=== PATIENT | male | born 1940 | race Caucasian/White ===

== ENCOUNTER 2022-02-26 21:43 | Emergency (ER) | payer MEDICARE ==
[~2022-02-26] VITALS: Ht 172.7 cm; Wt 70.9 kg
[2022-02-26] MEDS ORDERED: HYDROcodone/acetaminophen 5mg/325mg tablet PO ONE (23:40)
[2022-02-26] MEDS ORDERED: HYDR-3965 PO (23:57)
[2022-02-27 00:09] VITALS: BP 110/73
== END 2022-02-27 00:13 | disposition home or self-care (01) ==
LOC: ER 21:45
DX: S42.031A Displaced fracture of lateral end of right clavicle, initial encounter for closed fracture (principal); I10 Essential (primary) hypertension; E11.9 Type 2 diabetes mellitus without complications; Z91.013 Allergy to seafood; Z79.899 Other long term (current) drug therapy; W18.09XA Striking against other object with subsequent fall, initial encounter; Z91.81 History of falling; Y93.89 Activity, other specified; Y92.89 Other specified places as the place of occurrence of the external cause; Y99.8 Other external cause status
CPT/HCPCS: 73030; 99284

== ENCOUNTER 2025-08-24 12:11 | Day surgery (SDC) | payer MEDICARE ==
[2025-08-20 11:33] LABS: MEAN PLATELET VOLUME 7.1 FL (7.4-10.4); RED CELL DISTRIBUTION WIDTH 15.0 % (11.5-14.5)
[2025-08-20 11:42] LABS: APTT 28 SECONDS (22-32); INR 1.1 INR
[2025-08-20 11:43] LABS: CHOL/HDL RATIO 2.2 (0.00-4.99); CREATININE 1.14 MG/DL (0.60-1.10); LDL CHOLESTEROL 53 MG/DL (50-100); TOTAL CARBON DIOXIDE 28.5 MMOL/L (24-32); eGFR 61 ML/MIN
[~2025-08-24] VITALS: Ht 172.7 cm; Wt 77.4 kg
[2025-08-24] VITALS (10 sets, daily range): BP systolic 101–145; BP diastolic 58–87; PULSE 71–89; RESP 15–19; TEMP 98.4; O2SAT 93–99
--- NOTE | 2025-08-24 12:52 | ELECTROCARDIOGRAPH REPORT ---
[facility] Test Date: 2025-08-24 Test Time: 12:49:03 Pat Name: ORLIN REYES Department: [facility] Patient ID: [id number] Room: Gender: M Pastry Cook: : 1940 Requested By: MERT SIMS Order Number: [id number] Reading MD: Dr. Dainel Sims Measurements Intervals [place] Rate: 85 P: 0 ME: 0 QRS: 105 QRSD: 136 T: -8 QT: 398 QTc: 474 Interpretive Statements Atrial fibrillation RBBB and LPFB Electronically Signed On 08-25-2025 6:38:[address] Daniel Sims Please click the below link to view image of tracing.
[2025-08-24] MEDS ORDERED: METO50TA16 PO (13:43)
[2025-08-24] MEDS ORDERED: METF-517 PO (13:43)
[2025-08-24] MEDS ORDERED: LISI20TA28 PO (13:43)
[2025-08-24] MEDS ORDERED: CYAN250010 PO (13:43)
[2025-08-24] MEDS ORDERED: SIMV-42 PO (13:43)
[2025-08-24] MEDS ORDERED: MAGN250T35 PO (13:43)
[2025-08-24] MEDS ORDERED: FERR-119 PO (13:43)
[2025-08-24] MEDS ORDERED: OXYC-964 PO (13:43)
[2025-08-24] MEDS ORDERED: CHOL500044 PO (13:43)
[2025-08-24] MEDS ORDERED: ASPI-611 PO (13:43)
[2025-08-24] MEDS ORDERED: LIDOcaine 1% (10mg/ml) 2ml vial ONE (14:34)
[2025-08-24] MEDS ORDERED: heparin 1,000unit/ml 10ml vial 10 ML ONE (14:34)
[2025-08-24] MEDS ORDERED: midazolam 1 mg/ML 2ml injection ONE (14:34)
[2025-08-24] MEDS ORDERED: verapamil 2.5 mg/ml inj IV ONE (14:34)
[2025-08-24] MEDS ORDERED: fentaNYL/PF 50MCG/1 ML 2ML syringe ONE (14:34)
[2025-08-24] MEDS ORDERED: nitroGLYCERIN 500mcg/5mL D5W 5 ML IV ONE (14:35)
[2025-08-24] MEDS ORDERED: ondansetron/PF 4mg/2ml inj IV PRN (18:05)
[2025-08-24] MEDS ORDERED: OXAZEpam 15mg capsule PO PRN (18:10)
[2025-08-24] MEDS ORDERED: HYDROcodone/acetaminophen 5mg/325mg tablet PO PRN (18:10)
[2025-08-24] MEDS ORDERED: HYDROcodone/acetaminophen 10/325mg tab PO PRN (18:10)
--- NOTE | 2025-09-06 05:51 | CARDIOLOGY REPORT ---
DATE OF SERVICE: 08/24/2025 DICTATING PHYSICIAN: Daniel Sims MD CARDIAC CATHETERIZATION REPORT DATE OF STUDY: 08/24/2025. PROCEDURES: * Left heart catheterization. * Selective coronary angiography. * Left ventriculography. * Left subclavian and nonselective left internal mammary artery angiography. * Conscious sedation monitoring time for 30 minutes. INDICATION: Abnormal stress test. PHYSICIAN: Daniel Sims MD DESCRIPTION OF PROCEDURE: After informed consent was obtained, the patient was brought to the cardiac labor mediator in a fasting state where the patient was prepped and draped in the usual sterile manner. After adequate anesthesia was obtained using 1% lidocaine to the right wrist, a 5-[place] sheath was inserted into the right radial artery using a modified Seldinger technique. Thereafter, using a cocktail of heparin, verapamil and nitroglycerin, the cocktail was given via the sheath in the radial artery to prevent coronary vasospasm and for anticoagulation. Next, using an Ultimate-2 catheter, the catheter was advanced under fluoroscopy guidance into the ascending aorta. The catheter was then manipulated to engage the left coronary system and coronary angiography of the left system was obtained. Next, the catheter was disengaged and manipulated to engage the right coronary artery and selective coronary angiography of the right coronary artery was obtained. Thereafter, the catheter was disengaged from the right coronary artery and manipulated to advance into the left ventricle where left ventriculography in the HENDERSON position was obtained. The catheter was then removed. Hemostasis was obtained using the radial band. HEMODYNAMICS: For the patient's hemodynamics, please refer to the event log. Left ventricular end diastolic pressure is 27 mmHg. FINDINGS: The left main coronary artery is a normal caliber calcified vessel with a 20%-30% ostial stenosis. The left anterior descending coronary artery is also calcified and tortuous. An 80% ostial LAD stenosis immediately at the takeoff of the left main coronary artery is noted. The circumflex coronary arteries are normal caliber vessel that is calcified with mild disease. The right coronary artery is a medium caliber vessel with mild 20%-30% proximal stenosis. Left ventriculography revealed the presence of mild left ventricular hypokinesis. The patient has a normal subclavian and internal mammary artery. IMPRESSION: * An 80% ostial stenosis immediately at the takeoff of the left main coronary artery. 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 * Anterior hypokinesis. * Elevated LVEDP. The patient's LVEDP is 27 mmHg. RECOMMENDATION: Surgical revascularization. This was discussed with the patient. He prefers medical management. Daniel iSms MD TID: [id number] RECEIPT: [id number] AUBREY/DIV
== END 2025-08-24 17:50 | disposition home or self-care (01) ==
LOC: SSTAY O 12:11 → MERGE 20:00
PROVIDERS: ATTEND Student in an Organized Health Care Education/Training Program
DX: R94.39 Abnormal result of other cardiovascular function study (principal); I25.10 Atherosclerotic heart disease of native coronary artery without angina pectoris; I45.2 Bifascicular block; I10 Essential (primary) hypertension; E11.9 Type 2 diabetes mellitus without complications; E78.00 Pure hypercholesterolemia, unspecified; I48.0 Paroxysmal atrial fibrillation; I73.9 Peripheral vascular disease, unspecified; I35.0 Nonrheumatic aortic (valve) stenosis; M19.90 Unspecified osteoarthritis, unspecified site; Z79.891 Long term (current) use of opiate analgesic; Z79.84 Long term (current) use of oral hypoglycemic drugs; Z79.82 Long term (current) use of aspirin; Z79.899 Other long term (current) drug therapy; Z91.013 Allergy to seafood
CPT/HCPCS: 36415; 80048; 80061; 82948; 83695; 85025; 85610; 85730; 93005; 93458; 99152; 99153; A6258; A6402; C1894; J1644; J2003; J2250; J3010; J3490; J7030; Q0163; Q9967; Z7610